=== PATIENT | female | born 1990 | race African-American/Black ===

== ENCOUNTER 2016-11-08 21:51 | Emergency (ER) | payer OTHER ==
[2016-11-08 22:06] LABS: URINE SOURCE CLEAN CATCH
[2016-11-08 22:09] LABS: URINE APPEARANCE CLEAR; URINE BILIRUBIN NEG (NEG); URINE BLOOD NEG (NEG); URINE COLOR YELLOW; URINE GLUCOSE NEG (NORM); URINE KETONE NEG (NEG); URINE LEUKOCYTE ESTERASE NEG (NEG); URINE NITRATE NEG (NEG); URINE PROTEIN NEG (NEG); URINE UROBILINOGEN 0.2 MG/DL (NORM)
[2016-11-08 22:12] LABS: MICRO INDICATED? NO
[2016-11-08] MEDS ORDERED: REMERON PO (22:14)
[2016-11-08] MEDS ORDERED: MED FOR THYROID (22:14)
[2016-11-08] MEDS ORDERED: HYDROCODON-ACE1 EAC7 PO (22:15)
== END 2016-11-08 23:44 | disposition home or self-care (01) ==
LOC: SED 21:51
PROVIDERS: Emergency Medicine
DX: M54.5 Low back pain (principal); Z91.040 Latex allergy status; Z79.899 Other long term (current) drug therapy
CPT/HCPCS: 81003; 84703; 99283